=== PATIENT | female | born 1980 | race Caucasian/White ===

== ENCOUNTER 2017-01-23 07:35 | Day surgery (SDC) | payer OTHER ==
--- NOTE | ~2017-01-23 | EGD ---
EGD REPORT [facility] [address] [place] [address] NAME: BRENDA FUENTES : [birth year] STATUS : REG [facility]#: [id number] AGE: 36 ADM/REG DATE : 01/23/17 MR#: [id number] REPORT SERV DATE: 01/23/17 DICTATED BY: DATE: REPORT STATUS : Draft TRANSCRIBED BY: [employer] DATE: 01/23/17 [facility] Patient Name: Brenda Fuentes Date of : 1980 Attending MD: KYLIE PIERSON MD Procedure Date No Time: 01/23/2017 Procedure: Upper GI endoscopy Indications: Heartburn, Esophageal reflux Referring MD: Noelle DEMARCO II Medicines: Monitored Anesthesia Care Complications: No immediate complications. Procedure: Pre-Anesthesia Assessment: - ASA Grade Assessment: III - A patient with severe systemic disease. After obtaining informed consent, the endoscope was passed under direct vision. Throughout the procedure, the patient's blood pressure, pulse, and oxygen saturations were monitored continuously. The GIF [id number] was introduced through the mouth, and advanced to the second part of duodenum. The upper GI endoscopy was accomplished without difficulty. The patient tolerated the procedure well. Findings: The examined esophagus was normal. Striped mildly erythematous mucosa without bleeding was found in the gastric antrum. Biopsies were taken with a cold forceps for histology. Localized mildly erythematous mucosa without bleeding was found at the gastroesophageal junction. Biopsies were taken with a cold forceps for histology. The cardia and gastric fundus were normal on retroflexion. The duodenal bulb and 2nd part of the duodenum were normal. Impression: - Normal esophagus. - Erythematous mucosa in the antrum. Biopsied. - Erythematous mucosa in the gastroesophageal junction. Biopsied. - Normal duodenal bulb and 2nd part of the duodenum. Recommendation: - Patient has a contact number available for emergencies. The signs and symptoms of potential delayed complications were discussed with the patient. Return to normal activities tomorrow. Written discharge instructions were provided to the patient. - Regular diet. EGD REPORT [facility] [id number] [place]. [address] NAME: BRENDA FUENTES : [birth year] STATUS : REG [facility]#: [id number] AGE: 36 ADM/REG DATE : 01/23/17 MR#: [id number] REPORT SERV DATE: 01/23/17 DICTATED BY: DATE: REPORT STATUS : Draft TRANSCRIBED BY: [employer] DATE: 01/23/17 - Continue present medications. - Follow an antireflux regimen. - Return to GI clinic in 2 months. Procedure Code(s): --- Professional --- 68537, Esophagogastroduodenoscopy, flexible, transoral; with biopsy, single or multiple Diagnosis Code(s): --- Professional --- K31.9, Disease of stomach and duodenum, unspecified R12, Heartburn K21.9, Gastro-esophageal reflux disease without esophagitis CPT copyright 2013 [employer]. All rights reserved. The codes documented in this report are preliminary and upon instrument panel assembler review may be revised to meet current compliance requirements. KYLIE PIERSON MD 01/23/2017 9:12 AM This report has been signed electronically. Number of Addenda: 0 Note Initiated On: 01/23/2017 8:47 AM Scope Withdrawal Time 0 hours 0 minutes 0 seconds
[~2017-01-23 07:35] MED LIST: ABILIFY5 PO; KAPIDEX60 MG PO; PRILOSEC40 MG PO; SYN.15 PO; SYNTHROID200 MCG PO; VIT B-12 SL; WELLSR150 PO; WELLXL300 PO; ZANTAC 150 PO
== END 2017-01-23 23:59 | disposition home or self-care (01) ==
LOC: DMU 07:35
PROVIDERS: Internal Medicine Gastroenterology
PROC: 0DB48ZX Excision of Esophagogastric Junction, Via Natural or Artificial Opening Endoscopic, Diagnostic (ICD-10-PCS; 2017-01-23)
PROC: 0DB68ZX Excision of Stomach, Via Natural or Artificial Opening Endoscopic, Diagnostic (ICD-10-PCS; principal; 2017-01-23 09:00)
DX: K29.50 Unspecified chronic gastritis without bleeding (principal); K31.9 Disease of stomach and duodenum, unspecified; K21.9 Gastro-esophageal reflux disease without esophagitis; E03.9 Hypothyroidism, unspecified; Z87.891 Personal history of nicotine dependence; Z88.0 Allergy status to penicillin; Z88.1 Allergy status to other antibiotic agents; Z88.5 Allergy status to narcotic agent
CPT/HCPCS: 36415; 84703; 88305; J2405